=== PATIENT | female | born 1940 | race Caucasian/White ===

== ENCOUNTER 2022-09-01 13:49 | Outpatient (REF) | payer MEDICARE, SELFPAY ==
[2022-09-01 15:38] LABS: Folate 14.9 ng/mL (> or = 4.0); Vitamin B12 372 pg/mL (200-900)
== END 2022-09-01 13:50 | disposition home or self-care (01) ==
LOC: HO.LAB 13:49
PROVIDERS: PCP Internal Medicine; Visit Provider Psychiatry & Neurology Neurology
DX: G30.9 Alzheimer's disease, unspecified (principal)
CPT/HCPCS: 36415; 82607; 82746

== ENCOUNTER 2025-03-13 14:35 | Outpatient (AMB) | payer MEDICARE, SELFPAY ==
--- NOTE | 2025-03-13 14:47 | MHC.OFFVIS ---
Intake Visit Reasons: 6 mnts f/u Accompanied by: Family/Other Allergies No Known Allergies Allergy (Verified 03/13/25 14:50) Medication List - Last Reconciled 03/13/25 by Analilia Aguirre CNP alendronate 70 mg PO QWEEK aspirin 81 mg PO DAILY donepezil 5 mg PO BEDTIME memantine 10 mg PO BID sertraline 25 mg PO DAILY simvastatin 20 mg PO BEDTIME trazodone 50 mg PO BEDTIME PRN HPI Comments Details: 84-year-old woman with moderate to severe dementia. She felt great. She was a bit more forgetful, repetitive and needs reminders. Sleep was okay. Mood was okay. She was going for walks at nearby school and was not getting lost. She was living alone. She was doing some cooking and cleaning, and had family that helped. No safety concerns at this time. [facility] Medical History (Updated 03/13/25 @ 14:50 by Analilia Aguirre CNP) Osteoporosis Alzheimer dementia Review of Systems Const Denies chills, Denies daytime sleepiness, Denies difficulty sleeping, Denies fatigue, Denies fever(s), Denies frequent falls, Denies headache(s), Denies increased appetite, Denies poor appetite, Denies snoring, Denies weakness, Denies weight gain and Denies weight loss Eyes Denies loss of vision ENT Denies vertigo, Denies dizziness and Denies headache(s) Card Denies chest pain at rest, Denies chest pain with activity, Denies syncope, Denies leg edema and Denies palpitations Resp Denies snoring GI Denies constipation, Denies heartburn, Denies diarrhea and Denies nausea Denies urinary frequency, Denies urinary incontinence and Denies urinary urgency Musc Denies abnormal gait, Denies numbness and Denies tingling Skin/Breast Denies dry skin and Denies rash Neuro Denies abnormal gait, Denies vertigo, Denies dizziness, Denies syncope, Denies frequent falls, Denies headache(s), Denies lack of coordination, Denies loss of vision, Reports memory loss, Denies numbness, Denies restless legs, Denies seizure-like activity, Denies tingling, Denies paresthesias, Denies tremor(s) and Denies weakness Psych Denies anxiety, Denies depression, Denies auditory hallucinations, Reports memory loss, Denies visual hallucinations and Denies suicidal ideation Endo Denies fatigue and Denies palpitations Physical Exam Const Other: General Appearance:? normal, in no acute distress. Skin:? no rashes, no significant birthmarks. Heart:? S1, S2 normal, no murmurs. Lungs:? clear anteriorly and posteriorly. Extremities:? no edema. Psych:? alert, cooperative with exam. Neuro Other: Mental Status:?Alert and awake with normal sp speech, fluency, comprehension, and affect. She was able to tell me who she was here with. She was able to tell me her birthday. When asked her age, she said she is pushing 90s. Cranial Nerves:?Pupils are equal, round and reactive to light. External occular muscles are intact. Visual tinajero are full. Face is symmetrical. Facial sensations are normal. Tongue is midline. Palate elevates symmetrically. Shoulder shrugging is normal. Hearing to bedside conversation is normal. Sensory Exam:?....? Coordination:?No ataxia,?no titubation.? Gait Exam: Within normal limits. Cerebellar Signs:?[id number] and [id number]-jb-[id number] is normal.? Extrapyramidal System:?No tremor, rigidity with normal facial expressions.? Pronator Drift:?Not present.? Involuntary Movements:?No tremors seen.? Speech:?Normal.? Assessment & Plan Assessment & Plan (1) Alzheimer dementia: Code(s): G30.9 - Alzheimer's disease, unspecified; F02.80 - Dementia in other diseases classified elsewhere, unspecified severity, without behavioral disturbance, psychotic disturbance, mood disturbance, and anxiety Category: Medical Qualifiers: Alzheimer's disease onset: unspecified onset Dementia severity: moderate Dementia behavioral or psychological symptom: without behavioral, psychotic, or mood disturbance or anxiety Qualified Code(s): G30.9 - Alzheimer's disease, unspecified; F02.B0 - Dementia in other diseases classified elsewhere, moderate, without behavioral disturbance, psychotic disturbance, mood disturbance, and anxiety Plan: Continue sertraline 25mg 1 tablet daily Continue donepezil 10mg 1 tablet at bedtime Continue memantine 10mg 1 tablet twice a day Continue to stay physically and socially active. Coding Level of Care Code Est Pt Level 3 (03316) Diagnoses Moderate Alzheimer's dementia without behavioral disturbance, psychotic disturbance, mood disturbance, or anxiety, unspecified timing of dementia onset G30.9; F02.B0 Alzheimer's disease onset: unspecified onset Dementia severity: moderate Dementia behavioral or psychological symptom: without behavioral, psychotic, or mood disturbance or anxiety
--- OUTSIDE RECORDS SUMMARY | 2025-03-13 15:11 | XMS_ITS | Clinical Summary ---
Author Organization [facility] Address [address] [place] [address] Phone Care Team Providers Care 3Rd Mate Name Role Phone Estela Lozano MD Primary Care Provider [phone] Allergies Active Allergy Reactions Criticality Noted Date Comments Amoxicillin 11/09/2018 Amoxil No reaction documented. Sulfa (Sulfonamide Antibiotics) 11/09/2018 Sulfa Drugs No reaction documented. Medications aspirin 81 mg EC tablet Take 1 Tab by mouth daily. Active calcium carbonate (CALCIUM 600 ORAL) Calcium 600 MG Tab Take 1 Tablet by mouth 2 Times Daily. 06/30/2023 Active cholecalciferol (VITAMIN D-3) 50 mcg (2,000 unit) capsule Take 1 Capsule by mouth daily. 06/30/2023 Active hydrocortisone 2.5 % cream Apply to hands nightly 12/11/2023 Active melatonin 5 mg tablet Take 1 Tablet by mouth at bedtime as needed (insomnia). 06/20/2022 Active simvastatin (ZOCOR) 20 mg tablet TAKE 1 TABLET BY MOUTH EVERYDAY AT BEDTIME 90 tablet 1 11/18/2024 Active traZODone (DESYREL) 50 mg tablet TAKE 1 TABLET BY MOUTH EVERYDAY AT BEDTIME 90 tablet 1 11/18/2024 Active sertraline (ZOLOFT) 25 mg tablet Take 1 tablet (25 mg total) by mouth 1 (one) time each day. 90 tablet 1 11/23/2024 Active donepeziL (ARICEPT) 5 mg tablet Take 1 tablet (5 mg total) by mouth at bedtime. at bedtime. 90 tablet 1 11/23/2024 Active memantine (NAMENDA) 10 mg tablet Take 1 tablet (10 mg total) by mouth 2 (two) times a day. 180 tablet 1 11/23/2024 Active alendronate (FOSAMAX) 70 mg tablet TAKE 1 TABLET BY MOUTH ONE TIME PER WEEK 12 tablet 1 01/04/2025 Active Active Problems Problem Noted Date Diagnosed Date Anxiety 12/11/2022 Thyroid nodule 12/11/2022 Clavicle fracture 10/21/2022 Overview (07/28/2024): 10/09 left clavicle fracture, 5 left ribs, transverse process C7 and T1 DDD (degenerative disc disease), lumbar 11/10/19 19 Dementia ([facility] V24, [facility] V28) 11/09/2018 Hyperlipidemia 11/09/2018 Osteoarthritis of both hands 11/09/2018 Osteoporosis 11/09/2018 Overview (07/28/2024): 04/2015 Dexa scan: T score: lumbar spine -2.5, FRAX 18% major osteoporotic fracture; hip 6.1% Referred to rheumatology Immunizations Name Administration Dates Next Due COVID-19 (Pfizer/[employer]) 12yo and older 02/11/2024,05/22/2023 Influenza trivalent, 0.5mL ( Fluad) 65yo and older 05/17/2024,05/22/2023,06/03/2022,08/12,06/06/2019 Influenza trivalent, 0.5mL, preservative free (Fluarix; FluLaval; Fluzone) ages 6mo and older (Afluria) 3 years and older 06/01/2018 Pfizer (ages 12 & older) Biv alent, COVID-19 11/25/2022 Pfizer SARS-CoV-2 COVID-19, mRNA, LNP-S, preservative free 10/21/2020,09/30/2020 Pneumococcal conjugate 13 va lent (Prevnar 13, PCV13) 2mo and older 04/24/2020,11/19/2018,06/24/2015 Pneumococcal conjugate 20 va lent (Prevnar 20, PCV 20) 2mo and older 05/07/2024 Pneumococcal polysaccharide 23 valent (Pneumovax 23) 2yo and older 04/24/2020 Td Tetanus diptheria (Tdvax) 7yo and older 06/06/2019 Zoster recombinant (Shingrix ) 19yo and older 05/30/2023,06/03/2022 Surgical History Surgery Date Site/Laterality Comments APPENDECTOMY Medical History Medical History Date Comments Hyperlipidemia 11/09/2018 DDD (degenerative disc disease), lumbar 9 Dementia ([facility] V24, [facility] V28) 11/09/2018 Osteoarthritis of both thumbs 11/09/2018 Osteoporosis 11/09/201804/2015 Dexa scan : T score: lumbar spine -2.5, FRAX 18% major osteoporotic fracture; hip 6.1% Clavicle fracture 10/21/202210/09 left clav icle fracture, 5 left ribs, transverse process C7 and T1 Anxiety 12/11/2022 Thyroid nodule 12/11/2022 Family History Medical History Relation Name Comments No Known Problems Brother Lung cancer Father No Known Problems Sister Relation Name Status Comments Brother Alive Father Mother Sister Alive Social History Tobacco Use Types Packs/Day Years Used Date Smoking Tobacco: Never Smokeless Tobacco: Never Tobacco Cessation:Counseling Given: Not Answered Alcohol Use Standard Drinks/Week Comments No 0 (1 standard drink = 0.6 oz pur e alcohol) Comments Unknown Sex and Gender Information Value Date Recorded Sex Assigned at Not on file Legal Sex Female 12:03 AM EST Gender Identity Female 11/16/2024 1:50 PM EDT Sexual Orientation Straight 11/16/2024 1: 50 PM EDT Obstetrics History Last Filed Vital Signs Vital Sign Reading Time Taken Comments Blood Pressure 124/52 11/23/2024 1:50 PM EDT Pulse 71 11/23/2024 1:50 PM EDT Temperature 36.3 C (97.3 F) 11/23/2024 1:50 PM EDT Respiratory Rate 14 11/23/2024 1:50 PM EDT Oxygen Saturation 96% 11/23/2024 1:50 PM EDT Inhaled Oxygen Concentration - - Weight 56.1 kg (123 lb 11.2 oz) 11/23/2024 1:50 PM EDT Height 152.4 cm (5') 11/23/2024 1:50 PM EDT Body Mass Index 24.16 11/23/2024 1:50 PM EDT Plan of Treatment Upcoming Encounters Date Type Department Care Team (Late st Contact Info) Description 05/29/2025 3:30 PM EDT Office Visit Adult Medicine [facility] [address] [place] [address] Estela Lozano MD [address] [place] [address] Health Maintenance Due Date Last Done Comments RSV Immunization Adult Patients (1 - 1-dose 75+ series) 2014 Falls Risk Assessment 07/26/2022 Social Influencers of Health Screening 07/26/2022 COVID-19 Vaccine ( season) 2024 02/11/2024, 05/22/2023, 11/25/2022, Additional history exists Depression Screening 08/17/2024 05/25/2024 Influenza Vaccine (#1) 2025 , 05/22/2023, 06/03/2022, Additional history exists Medicare Annual Wellness Visit 05/25/2025 05/25/2024 DTaP,Tdap,and Td Vaccines (2 - Td or Tdap) 06/06/2029 06/06/2019 Cholesterol Screening (Lipid Panel) 11/23/2029 11/23/2024, 12/11/2023, 12/11/2023 Osteoporosis Screening (Bone Density Screening) 06/25/2033 06/25/2023, 05/24/2020, 11/24/2018 Zoster Vaccines Completed 05/30/2023, 06/03/2022 Pneumococcal Vaccine: 50+ Years Completed 05/07/2024, 04/24/2020, 04/24/2020, Additional history exists HIB Vaccines Aged Out No longer eligi ble based on patient's age to complete this topic HPV Vaccines Aged Out No longer eligi ble based on patient's age to complete this topic Hepatitis A Vaccines Aged Out No long er eligible based on patient's age to complete this topic Hepatitis B Vaccines Aged Out No long er eligible based on patient's age to complete this topic IPV Vaccines Aged Out No longer eligi ble based on patient's age to complete this topic MMR Vaccines Aged Out No longer eligi ble based on patient's age to complete this topic Meningococcal ACWY Vaccine Aged Out N o longer eligible based on patient's age to complete this topic Meningococcal B Vaccine Aged Out No l onger eligible based on patient's age to complete this topic RSV Immunization Patients Under 20 months Aged Out No longer eligible based on patient's age to complete this topic Varicella Vaccines Aged Out No longer eligible based on patient's age to complete this topic Procedures Procedure Name Priority Date/Time Associated Diagnosis Comments LIPID PANEL WITH REFLEX TO DIRECT LDL Routine 11/23/2024 2:34 PM EDT Other hyperlipidemia DEPRESSION SCREENING Routine 05/25/2024 DXA BONE DENSITY STUDY 1+ SITS AXIAL SKEL Routine 06/25/2023 10:31 AM EST Age-related osteoporosis without current pathological fracture from Last 3 Months or Most Recently Relevant to Health Maintenance Results * Lipid panel with reflex to direct LDL (11/23/2024 2:34 PM EDT) Cholesterol 176 0 - 200 mg/dL LAB CHEMISTRY METHOD 11/23/2024 5:14 PM EDT [facility] Triglycerides 95 0 - 150 mg/dL LAB CHEMISTRY METHOD 11/23/2024 5:14 PM EDT [facility] HDL 92 >=40 mg/dL LAB CHEMISTRY METHOD 11/23/2024 5:14 PM EDT [facility] LDL Calculated 65 0 - 100 mg/dL LAB CHEMISTRY METHOD 11/23/2024 5:14 PM EDT [facility] VLDL Cholesterol Jose 19 mg/dL LAB CHEMISTRY METHOD 11/23/2024 5:14 PM EDT [facility] Non HDL Chol. (LDL+VLDL) 84 <145 mg/dL LAB CHEMISTRY METHOD 11/23/2024 5:14 PM EDT [facility] Chol/HDL Ratio 1.9 0.0 - 4.4 LAB CHEMISTRY METHOD 11/23/2024 5:14 PM EDT [facility] Blood Venous blood specimen / Unknown Venipuncture / Unknown 11/23/2024 2:34 PM EDT 11/23/2024 2:34 PM EDT Estela Lozano MD LAB BLOOD ORDERABLES Final Resul t [facility] [address] [place] [address], [place] [phone] * Depression Screening (05/25/2024) [facility] Depression Screening abstracted [facility] Provider HEALTH MAINTENANCE Final Result * DXA BONE DENSITY STUDY 1+ SITS AXIAL SKEL (06/25/2023 10:31 AM EST) Anatomical Region Laterality Modality Bone Densitometr y 06/12/2022 10:1 8 AM EDT Narrative 06/25/2023 2:44 PM EST BONE DENSITY (DEXA) Lumbar Spine T-score is -1.9. (SD relative to 20-29 y/o adult) Z-score is 1.0. (SD relative to age matched peers) This is considered osteopenia by WHO criteria. Left Hip T-score is -2.9. Z-score is -0.4. This is considered osteoporosis by WHO criteria. There is mild curvature of the lumbar spine. IMPRESSION: This patient is considered to have osteoporosis by WHO criteria. The [facility] Department of Internal Medicine recommends using National Osteoporosis Foundation (NOF) guidelines in treatment decisions related to osteoporosis. NOF guidelines suggest considering treatment for postmenopausal women and men aged 50 or older presenting with the following: History of hip or vertebral fracture. T-score = -2.5 (DXA) at the femoral neck, total hip, or spine, after appropriate evaluation to exclude secondary causes. Low bone mass (T-score between -1.0 and -2.5 at the femoral neck or spine) AND a 10-year probability of a hip fracture = 3% OR a 10-year probability of a major osteoporosis-related fracture = 20% based on the [place]-adapted WHO algorithm Please note that all treatment decisions require clinical judgment and consideration of individual patient factors, including patient preferences, co-morbidities, previous drug use, risk factors not captured in the FRAX model (e.g., frailty, falls, vitamin D deficiency, increased bone turnover, interval significant decline in bone density) and possible under- or over-estimation of fracture risk by FRAX. Optional alternative screening schedule based on guillermina Acuña., [facility] September 04, 2011 for patients with osteopenia (based on hip BMD T-score) is as follows: * advanced osteopenia (T scores -2.00 to -2.49), BMD testing every year * moderate osteopenia (T scores -1.50 to -1.99), BMD testing every 5 years mild osteopenia or normal BMD (T scores -1.50 and higher), BMD testing every 15 years Procedure Note Rocío Mcgill MD - 09/22/2023 BONE DENSITY (DEXA) Lumbar Spine T-score is -1.9. (SD relative to 20-29 y/o adult) Z-score is 1.0. (SD relative to age matched peers) This is considered osteopenia by WHO criteria. Left Hip T-score is -2.9. Z-score is -0.4. This is considered osteoporosis by WHO criteria. There is mild curvature of the lumbar spine. IMPRESSION: This patient is considered to have osteoporosis by WHO criteria. The [facility] Department of Internal Medicinerecommends using National Osteoporosis Foundation (NOF) guidelines in treatment decisionsrelated to osteoporosis. NOF guidelines suggest considering treatment forpostmenopausal women and men aged 50 or older presenting with the following: History of hip or vertebral fracture. T-score = -2.5 (DXA) at the femoral neck, total hip, or spine, afterappropriate evaluation to exclude secondary causes. Low bone mass (T-score between -1.0 and -2.5 at the femoral neck or spine)AND a 10-year probability of a hip fracture = 3% OR a 10-year probability of a majorosteoporosis-related fracture = 20% based on the [place]-adapted WHO algorithm Please note that all treatment decisions require clinical judgment andconsideration of individual patient factors, including patient preferences, co- morbidities,previous drug use, risk factors not captured in the FRAX model (e.g., frailty, falls, vitaminD deficiency, increased bone turnover, interval significant decline in bone density) andpossible under- or over-estimation of fracture risk by FRAX. Optional alternative screening schedule based on guillermina Acuña., [facility]January 2011 for patients with osteopenia (based on hip BMD T-score) is as follows: * advanced osteopenia (T scores -2.00 to -2.49), BMD testing every year * moderate osteopenia (T scores -1.50 to -1.99), BMD testing every 5years mild osteopenia or normal BMD (T scores -1.50 and higher), BMD testingevery 15 years Ayala LUJAN IMLinden DXA PROCEDURES Final Resu lt from Last 3 Months or Most Recently Relevant to Health Maintenance Insurance [employer] Care Teams 3Rd Mate Relationship Specialty Start Date End Date Estela Lozano MD [address] [place] [id number] PCP - General Internal Medicine 07/16/21
--- OUTSIDE RECORDS SUMMARY | 2025-03-13 15:11 | XMS_ITS ---
Author Name [facility] Organization Unknown Care Team Organization Name Specialty Phone Email Start Date End Da te [facility] Estela Lozano Primary Care 06/24/2022 4
== END 2025-03-13 15:00 | disposition home or self-care (01) ==
LOC: HO.HSM 14:36
PROVIDERS: PCP Internal Medicine; Referring Provider Internal Medicine; Visit Provider Registered Nurse
DX: G30.9 Alzheimer's disease, unspecified (principal); F02.B0 Dementia in other diseases classified elsewhere, moderate, without behavioral disturbance, psychotic disturbance, mood disturbance, and anxiety
CPT/HCPCS: 99213

== ENCOUNTER → 2025-03-13 14:35 | Outpatient (BNVA) | payer MEDICARE, SELFPAY | PROVIDERS: PCP Internal Medicine; Referring Provider Internal Medicine; Visit Provider Registered Nurse | DX: G30.9 Alzheimer's disease, unspecified (principal); F02.B0 Dementia in other diseases classified elsewhere, moderate, without behavioral disturbance, psychotic disturbance, mood disturbance, and anxiety | CPT/HCPCS: 99212 ==